=== PATIENT | male | born 1970 | race Caucasian/White ===

== ENCOUNTER 2017-06-13 09:58 | Emergency (ER) | payer OTHER ==
[2017-06-13 10:22] LABS: ADD MAN DIFF? NO
[2017-06-13 10:24] LABS: BASOPHILS % 0.5 % (0.0-2.0); EOSINOPHILS # 0.2 10^3/ul (0.0-0.5); EOSINOPHILS % 2.7 % (0.0-7.0); HEMATOCRIT 46.1 % (42.0-52.0); HEMOGLOBIN 15.9 g/dl (14.0-18.0); LYMPHOCYTES # 2.6 10^3/ul (0.8-2.9); LYMPHOCYTES % 30.8 % (15.0-51.0); MEAN CORPUSCULAR HEMOGLOBIN 30.5 pg (29.0-33.0); MEAN CORPUSCULAR HGB CONC 34.5 g/dl (32.0-37.0); MEAN CORPUSCULAR VOLUME 88.3 fl (82.0-101.0); MEAN PLATELET VOLUME 9.4 fl (7.4-10.4); MONOCYTE # 0.7 10^3/ul (0.3-0.9); MONOCYTES % 8.5 % (0.0-11.0); NEUTROPHIL # 4.7 10^3/ul (1.6-7.5); NEUTROPHILS % 57.1 % (39.0-77.0); PLATELET COUNT 296 10^3/UL (140-415); RED BLOOD COUNT 5.22 10^6/ul (4.70-6.10); RED CELL DISTRIBUTION WIDTH 11.9 % (11.5-14.5)
[2017-06-13 10:24] LABS: WHITE BLOOD COUNT 8.3 10^3/ul (4.8-10.8)
[2017-06-13] MEDS: KETOROLAC 15 MG INJ IV (10:30)
[2017-06-13] MEDS: SOD CHLORIDE 0.9% 1,000 ML IV (10:30)
[2017-06-13] MEDS: HYDROmorphONE 0.5 MG/0.5 ML SYG IV ×2 (10:30→11:25)
[2017-06-13] MEDS: ONDANSETRON 4 MG INJ IV (10:30)
[2017-06-13 10:43] LABS: ALANINE AMINOTRANSFERASE 59 IU/L (13-69); ALBUMIN 4.6 g/dl (3.3-4.9); ALBUMIN/GLOBULIN RATIO 1.35; ALKALINE PHOSPHATASE 111 IU/L (42-121); ANION GAP 20 (8-16); ASPARTATE AMINO TRANSFERASE 32 IU/L (15-46); BILIRUBIN,INDIRECT 0.3 mg/dl (0-1.1); BILIRUBIN,TOTAL 0.3 mg/dl (0.2-1.3); BLOOD UREA NITROGEN 23 mg/dl (7-20); CARBON DIOXIDE 23 mmol/L (21-31); CHLORIDE 106 mmol/L (97-110); GLUCOSE 138 mg/dl (70-220); LIPASE 66 U/L (23-300); POTASSIUM 3.7 mmol/L (3.5-5.1); SODIUM 145 mmol/L (135-144)
[2017-06-13 10:48] LABS: INR 0.94; PARTIAL THROMBOPLASTIN TIME 30.3 Sec (25.0-35.0); PROTIME 12.7 Sec (11.9-14.9)
== END 2017-06-13 12:58 | disposition home or self-care (01) ==
LOC: E/R 09:58
DX: N23 Unspecified renal colic (principal); F17.210 Nicotine dependence, cigarettes, uncomplicated; R40.2142 Coma scale, eyes open, spontaneous, at arrival to emergency department; R40.2252 Coma scale, best verbal response, oriented, at arrival to emergency department; R40.2362 Coma scale, best motor response, obeys commands, at arrival to emergency department
CPT/HCPCS: 36415; 74176; 80053; 83690; 85025; 85610; 85730; 96374; 96375; 96376; 99285-25